=== PATIENT | female | born 1965 | race Caucasian/White ===

== ENCOUNTER 2020-03-17 06:58 | Outpatient (CLI) | payer OTHER, SELFPAY ==
--- NOTE | 2020-03-17 07:03 | NMCV_ITS ---
NM steven perf SPECT r/s* [id number] Mallika Soliz Age: 54 Gender: F : 1965 Exam Date: 03/17/2020 08:06 Ordering Phys: Jovan Colón MD Technologist: VERONICA Crabtree Exam Location: [facility] Indications: CHEST PAIN STRESS TEST Please see separate stress test report in [facility] for full findings IMAGE PROTOCOL Rest/Stress 1 Exercise Day Radiopharmaceutical Dose (mCi) Administration Site Administered by Rest: Tc-99m 10.7 IV VERONICA Crabtree Sestamibi Stress:Tc-99m 32.5 IV VERONICA Shaikh Sestamibi Rest: 17-Mar-2020 60 Discovery 630 Stress: 17-Mar-2020 15 Discovery 630 Radiopharmaceutical was injected at 86 % maximum heart rate. Images obtained in supine and prone position. SPECT RESULTS Technical Quality: Excellent Raw Data Analysis: Normal Image Corrections: No attenuation or motion correction applied Summed Stress Score: 1 Summed Rest Score: 7 Summed Difference Score: 0 PERFUSION FINDINGS Patchy areas of slightly decreased tracer uptake in the anterior wall inferior wall regions, with no significant reversibility. FUNCTIONAL RESULTS (calculated via Gated SPECT) Stress Image LV EF (%): 76 Stress EDV (mL):63 TID: 1.33 Stress ESV (mL):15 FUNCTIONAL FINDINGS: Segmental wall motion analysis revealing no gross wall motion normalities. IMPRESSIONS 1. Myocardial perfusion imaging revealing patchy areas of persistent decreased tracer uptake in the anterior wall and inferior regions, most likely represent attrition artifact. 2. Normal LV ejection fraction of 76%. 3. LV wall motion analysis revealed no gross wall motion normalities 4. Normal LV volume. 5. Elevated transient ischemic dilatation ratio of 1.33 No elevated transient ischemic dilatation ratio may suggest endocardial ischemia. However the positive predictive value this finding is limited. Clinical correlation is recommended. Dr Paul Jacques MD [facility] (Electronically Signed) Final Date: 17 March 2020 14:27 S
--- NOTE | 2020-03-17 07:25 | ECG_ITS ---
NAME OF STUDY: EXERCISE SESTAMIBI STRESS TEST INDICATION: Chest Pain, PROCEDURE: The baseline electrocardiogram showed normal sinus rhythm with a poor R wave progression. Normal ST-T's. At the baseline, the patient's blood pressure was 132/86 mm Hg with a heart rate of 72. The patient exercised for 5 minutes and 21 seconds on a standard Sam protocol. Patient attained a maximum heart rate of 156 beats per minute(94 % of the maximum predicted heart rate) with a blood pressure at the peak exercise of 170/82 mm Hg. The EKG at the peak exercise revealed no significant changes. Patient did not have any chest pain or any significant arrhythmis with the exercise Sestamibi was injected 1 minute prior to the peak exercise During the recovery phase, there were no new changes. Blood pressure at the end of the recovery phase was 159/82 mm Hg with a heart rate of 97 per minute. CONCLUSION: 1. No significant EKG changes with the [treadmill exercise 2. No exercise-induced chest pain or cardiac arrhythmia 3. Slightly impaired exercise tolerance, attained a maximum of 7.0 METs 4. Sestamibi/Sestamibi perfusion results pending; see separate report. Electronically Signed On 03-17-2020 13:29:38 CDT by Paul Jacques M.D. [email or web address]
[2020-03-17 07:27] VITALS: BMI 25.7
[2020-03-17 09:37] VITALS: BP 159/82; PULSE 96
== END 2020-03-17 06:59 | disposition home or self-care (01) ==
LOC: RAD 07:00
PROVIDERS: Family Provider Internal Medicine; PCP Internal Medicine; Visit Provider Family Medicine
DX: R07.9 Chest pain, unspecified (principal)
CPT/HCPCS: 78452; 93017; A9500

== ENCOUNTER 2020-04-18 07:15 | Outpatient (CLI) | payer OTHER, SELFPAY ==
--- NOTE | 2020-04-18 07:20 | USCV_ITS ---
Mallika Soliz Age: 55 Gender: F : 1965 Exam Date: 04/18/2020 07:33 Ordering Phys: Zohaib Mehta DO Technologist: Aaron Mock Exam Location: [facility] [place] Indication: PALPATATION BP: 120 / 70 HR: 79 Rhythm: Sinus Technical Quality: Adequate MEASUREMENTS (Male / Female) Normal Values 2D ECHO LVOT Diameter 2.0 cm LV Ejection Fraction MOD 2C 78.5 % LV Ejection Fraction 2C AL 78.6 % LA Diameter 3.6 cm Aorta at Sinotubular Diameter 2.4 cm M-MODE LV Diastolic Diameter MM 3.8 cm 4.2 - 5.9 / 3.9 - 5.3 cm LV Systolic Diameter MM 1.9 cm LV Ejection Fraction MM Teich 81.2 % IVS Diastolic Thickness MM 0.8 cm 0.6 - 1.0 / 0.6 - 0.9 cm IVS Systolic Thickness MM 1.4 cm LVPW Diastolic Thickness MM 1.1 cm 0.6 - 1.0 / 0.6 - 0.9 cm LVPW Systolic Thickness MM 1.8 cm RV Diastolic Diameter MM 2.3 cm Aortic Annulus Diameter 2.9 cm LA Ao Ratio MM 1.2 MV E Point Septal Separation 1.0 cm DOPPLER AV Peak Velocity 141.0 cm/s LVOT Peak Velocity 122.0 cm/s AV Area Cont Eq vti 2.5 cm squared AV Area Cont Eq pk 2.7 cm squared MV Area PHT 5.0 cm squared Mitral E to A Ratio 0.9 MV E' Velocity 11.0 cm/s Mitral E to MV E' Ratio 9.2 Mitral E to LV E' Lateral Ratio 8.8 Mitral E to LV E' Septal Ratio 9.6 TR Peak Velocity 262.0 cm/s TR Peak Gradient 27.4 mmHg Right Atrial Pressure 3.0 mmHg Pulmonary Artery Systolic Pressu 30.5 mmHg PV Peak Velocity 80.0 cm/s FINDINGS Left Ventricle Normal left ventricular size, systolic function and wall thickness, with no regional wall motion abnormalities. Left ventricular ejection fraction is estimated at 75 %. Normal diastolic function. Right Ventricle Normal right ventricular size and systolic function. Right ventricular systolic pressure 30.5 mmHg. Right Atrium Normal right atrial size. Left Atrium Normal left atrial size. Mitral Valve Structurally normal mitral valve. No mitral valve stenosis. Trace mitral valve regurgitation. Aortic Valve Structurally normal trileaflet aortic valve. No aortic valve stenosis. Trace aortic valve regurgitation. Tricuspid Valve Structurally normal tricuspid valve. Trace tricuspid valve regurgitation. Pulmonic Valve Structurally normal pulmonic valve. No pulmonary valve stenosis. Trace pulmonary valve regurgitation. Pericardium No pericardial effusion. Aorta Normal-sized aortic root. CONCLUSIONS 1. Normal left ventricular size, systolic function and wall thickness, with no regional wall motion abnormalities. Left ventricular ejection fraction is estimated at 75 %. Normal diastolic function. 2. Normal right ventricular size and systolic function. 3. Trace aortic valve regurgitation. 4. No prior similar studies to compare. Gunjan Ferrera MD (Electronically Signed) Final Date: 18 Apr 2020 14:49 S
== END 2020-04-18 07:16 | disposition home or self-care (01) ==
PROVIDERS: Family Provider Internal Medicine; PCP Internal Medicine; Visit Provider Internal Medicine
DX: R00.2 Palpitations (principal)
CPT/HCPCS: 93306

== ENCOUNTER 2021-04-09 10:02 | Emergency (ER) | payer OTHER, SELFPAY ==
[2021-04-09 10:10] VITALS: BP 145/90; PULSE 75; RESP 16; TEMP 36.9; O2SAT 98; BMI 26.7
--- NOTE | 2021-04-09 10:15 | W.ED.ABDPA2 ---
Documented by User: Carla Joseph 04/09/21 13:06 HPI - Abdominal Pain General: Chief Complaint: Abdominal Pain Stated Complaint: AB/BACK PAIN Time Seen by Provider: 04/09/21 10:04 History of Present Illness: HPI narrative: Mallika is a 55-year-old female who states she started having right-sided flank/abdominal pain last night. She states she went to [facility] and they did a urinalysis which did not show an infection so they advised her to come here for further evaluation. Denies any recent falls or abdominal trauma. MD elicited complaint: abdominal pain Onset (ago): hour(s) (12) Severity: moderate Pain scale (0-10): 6 Quality: cramping Migration to: periumbilical, RLQ and R flank Exacerbating factors: nothing Relieving factors: nothing Associated Symptoms: Reports nausea; Denies chills, dysuria, fever(s), hematochezia and hematemesis Review of Systems Const: Denies: fever(s) or chills ENMT: Denies: throat pain Card: Denies: chest pain or palpitations Resp: Denies: dyspnea GI: Reports: abdominal pain and nausea; Denies: hematemesis or hematochezia : Reports: flank pain; Denies: difficulty voiding or dysuria Musc: Denies: neck pain or back pain Skin/Breast: Denies: rash Neuro: Denies: headache(s) Physical Exam Const: COMMON NORMALS: no acute distress GENERAL APPEARANCE: cooperative ORIENTATION/CONSCIOUSNESS: Yes awake, Yes oriented to person, Yes oriented to place and Yes oriented to time HENMT: COMMON NORMALS: normocephalic HEAD & SCALP: normocephalic Eye: COMMON NORMALS: Equal, round and reactive pupils present and EOMs intact bilaterally PUPIL: Yes Equal, round and reactive pupils present Neck/C-Spine: COMMON NORMALS: full ROM GENERAL: Yes normal visual inspection Chest: COMMONS NORMALS: normal inspection of the chest CHEST: Yes Symmetrical chest wall rise Resp: COMMON NORMALS: normal respiratory effort and clear to auscultation bilaterally EFFORT & INSPECTION: Yes able to speak in complete sentences and Yes symmetric chest movement AUSCULTATION: clear to auscultation bilaterally Cardio: COMMON NORMALS: regular rate and regular rhythm RATE: regular rate RHYTHM: regular rhythm GI: COMMON NORMALS: Normal to inspection, nondistended, normoactive bowel sounds present and Soft to palpation INSPECTION: Yes normal to inspection PALPATION: Yes Soft to palpation, Yes Tenderness to palpation present (GI) Details: RLQ, No Guarding due to palpation present (GI) and No Rigid due to palpation Neuro: SENSORIUM/ORIENTATION: Yes oriented to person, Yes oriented to place and Yes oriented to time Course ED course: 1220: Patient reassessed and states that her pain is now 2 out of 10. She is resting comfortably. Advised her her CT scan showed right-sided ovarian cyst and given her amount of pain would like to rule out ovarian torsion. Discussed this will be performed with an ultrasound. Ultrasound ordered. Vital Signs: Vital signs: Vital Signs Temperature 98.5 F 04/09/21 10:10 Pulse Rate 72 04/09/21 13:41 Respiratory Rate 18 04/09/21 13:41 Blood Pressure 129/82 04/09/21 13:41 Pulse Oximetry 98 04/09/21 13:41 MDM - Abdominal Pain Lab Data: Labs: Lab Results 04/09/21 04/09/21 04/09/21 Range/Units 10:27 10:27 11:40 WBC 6.5 (4.0-10.0) 10^3/ uL RBC 5.41 H (4.1-5.3) 10^6/u L Hgb 15.0 (11.5-15.3) g/dL Hct 46.9 (37.0-47.0) % MCV 86.7 (81-99) fL MCH 27.7 L (28.0-34.0) pg MCHC 32.0 (30.0-36.0) g/dL RDW 13.7 (12.1-15.1) % Plt Count 298 (130-400) 10^3/c mm MPV 9.6 (7.4-10.4) fL Neut % (Auto) 79.3 % Lymph % (Auto) 15.3 % [place] % (Auto) 4.0 % Eos % (Auto) 0.8 % Baso % (Auto) 0.3 % Neut # (Auto) 5.13 (1.8-7.7) 10^3/u L Lymph # (Auto) 1.0 (0.8-4.8) 10^3/u L [place] # (Auto) 0.3 (0.2-0.9) 10^3/u L Eos # (Auto) 0.1 (0.0-0.8) 10^3/u L Baso # (Auto) 0.0 (0.0-0.1) 10^3/u L Nucleated RBC % (a uto) 0 % Nucleated RBCs # 0.0 /100WBC Sodium 140 (136-145) mmol/L Potassium 4.2 (3.5-5.1) mmol/L Chloride 105 (98-107) mmol/L Carbon Dioxide 26 (22-29) mmol/L Anion Gap 13.2 (5-19) BUN 15 (6-20) mg/dL Creatinine 0.6 (0.5-0.9) mg/dL GFR Calculation 103.4 (90-130) mL/min Glucose 104 (65-115) mg/dL Calculated Osmolal ity 291 (285-295) mOsm/k g Calcium 9.3 (8.5-10.5) mg/dL Total Bilirubin 0.3 (0.15-1.2) mg/dL AST 20 (0-32) U/L ALT 25 (0-33) U/L Alkaline Phosphata se 107 H (35-105) IU/L Total Protein 7.8 (6.6-8.7) g/dL Albumin 4.5 (3.5-5.2) g/dL Globulin 3.3 (1.3-4.6) g/dL Urine Color Colorless (Yellow) Urine Appearance Clear (CLEAR) Urine pH 6.5 (5-7) Ur Specific Gravit y 1.010 (1.005-1.030) Urine Protein Neg (Negative) Urine Glucose (UA) Norm (Normal) Urine Ketones Negative (Negative) Urine Blood Neg (Negative) Urine Nitrate Negative (Negative) Urine Bilirubin Neg (Negative) Urine Urobilinogen Norm (Negative) mg/dL Ur Leukocyte Briseida ase Negative (Negative) Imaging Data ^: CT Abd/Pel: Radiologist's impression: 1. Normal appendix. 2. RIGHT ovarian cyst measuring 3.6 x 3.0 cm with adjacent edema in the adnexa. No free fluid. If there is possibility of ovarian torsion consider transvaginal pelvic ultrasound follow-up. 3. Retroverted uterus with a fundal fibroid measuring 4.2 x 3.3 cm. 4. Mild increase fluid in the proximal jejunum may be due minimal sentinel ileus or peristalsis. US: Radiologist's impression: Blood flow noted to both ovaries bilaterally. Ovarian cyst on the right ovary. Uterine fibroid. Discharge Plan Discharge Patient Disposition: Home Clinical Impression: Nausea Ovarian cyst Qualifiers: Laterality: right Qualified Code(s): N83.201 - Unspecified ovarian cyst, right side Condition: Stable Prescriptions: New naproxen 500 mg tablet 500 mg PO BID Qty: 15 RF: 0 No Action multivitamin Tablet 1 tab PO DAILY RF: 0 ibuprofen 800 mg Tablet 800 mg PO TID PRN (Reason: Pain) RF: 0 Discharge Orders: Discharge ED (Routine); Ordered 04/09/21 Ordered By: Carla Joseph Referrals: Zohaib Mehta DO [Primary Care Provider] - Discharge Diet: Usual diet Discharge Activity: Resume usual activity Patient Instructions: Opioid Safety Activity Restrictions/Additional Instructions: Drink plenty of fluids. Take naproxen twice daily with food for the next 5 days. Take this instead of ibuprofen for pain. You may take additional [id number] Tylenol as needed as directed by package instructions. Avoid any heavy lifting for the next 3 to 5 days. Follow-up with your family doctor in 3 to 5 days. Return if any problems. Coding Level of Care Code ED Fish Hatchery Manager for Chg Fwd Exam Comprehensive Documented by User: Brown Flores DO 04/10/21 16:37 HPI - Abdominal Pain General: Chief Complaint: Abdominal Pain Stated Complaint: AB/BACK PAIN Time Seen by Provider: 04/09/21 10:04 Course Vital Signs: Vital signs: Vital Signs Temperature 98.5 F 04/09/21 10:10 Pulse Rate 72 04/09/21 13:41 Respiratory Rate 18 04/09/21 13:41 Blood Pressure 129/82 04/09/21 13:41 Pulse Oximetry 98 04/09/21 13:41 MDM - Abdominal Pain MDM Narrative: Medical decision making narrative: Discussed case with midlevel. Agree with assessment and plan Lab Data: Labs: Lab Results 04/09/21 04/09/21 04/09/21 Range/Units 10:27 10:27 11:40 WBC 6.5 (4.0-10.0) 10^3/ uL RBC 5.41 H (4.1-5.3) 10^6/u L Hgb 15.0 (11.5-15.3) g/dL Hct 46.9 (37.0-47.0) % MCV 86.7 (81-99) fL MCH 27.7 L (28.0-34.0) pg MCHC 32.0 (30.0-36.0) g/dL RDW 13.7 (12.1-15.1) % Plt Count 298 (130-400) 10^3/c mm MPV 9.6 (7.4-10.4) fL Neut % (Auto) 79.3 % Lymph % (Auto) 15.3 % [place] % (Auto) 4.0 % Eos % (Auto) 0.8 % Baso % (Auto) 0.3 % Neut # (Auto) 5.13 (1.8-7.7) 10^3/u L Lymph # (Auto) 1.0 (0.8-4.8) 10^3/u L [place] # (Auto) 0.3 (0.2-0.9) 10^3/u L Eos # (Auto) 0.1 (0.0-0.8) 10^3/u L Baso # (Auto) 0.0 (0.0-0.1) 10^3/u L Nucleated RBC % (a uto) 0 % Nucleated RBCs # 0.0 /100WBC Sodium 140 (136-145) mmol/L Potassium 4.2 (3.5-5.1) mmol/L Chloride 105 (98-107) mmol/L Carbon Dioxide 26 (22-29) mmol/L Anion Gap 13.2 (5-19) BUN 15 (6-20) mg/dL Creatinine 0.6 (0.5-0.9) mg/dL GFR Calculation 103.4 (90-130) mL/min Glucose 104 (65-115) mg/dL Calculated Osmolal ity 291 (285-295) mOsm/k g Calcium 9.3 (8.5-10.5) mg/dL Total Bilirubin 0.3 (0.15-1.2) mg/dL AST 20 (0-32) U/L ALT 25 (0-33) U/L Alkaline Phosphata se 107 H (35-105) IU/L Total Protein 7.8 (6.6-8.7) g/dL Albumin 4.5 (3.5-5.2) g/dL Globulin 3.3 (1.3-4.6) g/dL Urine Color Colorless (Yellow) Urine Appearance Clear (CLEAR) Urine pH 6.5 (5-7) Ur Specific Gravit y 1.010 (1.005-1.030) Urine Protein Neg (Negative) Urine Glucose (UA) Norm (Normal) Urine Ketones Negative (Negative) Urine Blood Neg (Negative) Urine Nitrate Negative (Negative) Urine Bilirubin Neg (Negative) Urine Urobilinogen Norm (Negative) mg/dL Ur Leukocyte Briseida ase Negative (Negative) Discharge Plan Discharge Patient Disposition: Home Clinical Impression: Nausea Ovarian cyst Qualifiers: Laterality: right Qualified Code(s): N83.201 - Unspecified ovarian cyst, right side Condition: Stable Prescriptions: New naproxen 500 mg tablet 500 mg PO BID Qty: 15 RF: 0 No Action multivitamin Tablet 1 tab PO DAILY RF: 0 ibuprofen 800 mg Tablet 800 mg PO TID PRN (Reason: Pain) RF: 0 Discharge Orders: Discharge ED (Routine); Ordered 04/09/21 Ordered By: Carla Joseph Referrals: Zohaib Mehta DO [Primary Care Provider] - Discharge Diet: Usual diet Discharge Activity: Resume usual activity Patient Instructions: Opioid Safety Activity Restrictions/Additional Instructions: Drink plenty of fluids. Take naproxen twice daily with food for the next 5 days. Take this instead of ibuprofen for pain. You may take additional [id number] Tylenol as needed as directed by package instructions. Avoid any heavy lifting for the next 3 to 5 days. Follow-up with your family doctor in 3 to 5 days. Return if any problems. Coding Level of Care Code ED Fish Hatchery Manager for Tangelag Fwd Exam Comprehensive
[2021-04-09 10:36] LABS: Basophils % 0.3 %; Eosinophils # 0.1 10^3/uL (0.0-0.8); Eosinophils % 0.8 %; Hematocrit 46.9 % (37.0-47.0); Lymphocytes % 15.3 %; Mean Corpuscular Hemoglobin 27.7 pg (28.0-34.0); Mean Corpuscular Volume 86.7 fL (81-99); Mean Platelet Volume 9.6 fL (7.4-10.4); Monocytes # 0.3 10^3/uL (0.2-0.9); Neutrophils # 5.13 10^3/uL (1.8-7.7); Neutrophils % 79.3 %; Nucleated Red Blood Cells % 0 %; Platelet Count 298 10^3/cmm (130-400); Red Blood Count 5.41 10^6/uL (4.1-5.3); Red Cell Distribution Width 13.7 % (12.1-15.1); White Blood Count 6.5 10^3/uL (4.0-10.0)
[2021-04-09 10:49] LABS: Alanine Aminotransferase 25 U/L (0-33); Albumin Level 4.5 g/dL (3.5-5.2); Alkaline Phosphatase 107 IU/L (35-105); Anion Gap 13.2 (5-19); Aspartate Amino Transferase 20 U/L (0-32); Blood Urea Nitrogen 15 mg/dL (6-20); Calcium 9.3 mg/dL (8.5-10.5); Carbon Dioxide 26 mmol/L (22-29); Chloride 105 mmol/L (98-107); Globulin 3.3 g/dL (1.3-4.6); Glomerular Filtration Rate 103.4 mL/min (90-130); Glucose 104 mg/dL (65-115); Osmolality Calculated 291 mOsm/kg (285-295); Potassium 4.2 mmol/L (3.5-5.1); Sodium 140 mmol/L (136-145); Total Bilirubin 0.3 mg/dL (0.15-1.2); Total Protein 7.8 g/dL (6.6-8.7)
--- NOTE | 2021-04-09 10:49 | CT_ITS ---
WS: [id number] CT ABDOMEN AND PELVIS WITH CONTRAST HISTORY: RLQ pain TECHNIQUE: Imaging performed of the abdomen and pelvis with IV contrast. Single phase imaging of the abdomen. Coronal and sagittal reformats are submitted. All CT scans at [facility] use at least one of these dose optimization techniques: automated exposure control; mA and/or kV adjustment per patient size (includes targeted exams where dose is matched to clinical indication); or iterativ e reconstruction. IV CONTRAST: Omnipaque 300; 95 mL IV. Oral contrast: No DLP: 1236.79 mGy.cm COMPARISON: None available. Lower thorax: Lung bases are clear. Heart is normal size. Large hiatal hernia. Liver/biliary system: Normal size liver. Area of fatty sparing adjacent to the falciform ligament. Gallbladder: Normal. No gallstones or wall thickening. No pericholecystic fluid. Pancreas: Normal size pancreas and pancreatic duct. No adjacent inflammation. Spleen: Normal size spleen. No mass or infarct. Adrenal glands: Normal. Right kidney: Normal. Left kidney: Normal. Aorta: Normal. Lymphadenopathy: None. Free fluid: None. GI tract: Normal appendix. There is mild diffuse constipation. Small amount of increased fluid in the jejunum. May be a sentinel loop. No evidence for an intussusception. Abdominal wall: Unremarkable abdominal wall. No hernia. Pelvis: Cystic mass in the RIGHT adnexa measures 3.6 x 3.0 cm. There is adjacent edema within the sof t tissues of the LEFT adnexa. The uterus is retroverted and there is a fundal fibroid measuring 4.2 x 3.3 cm. Normal size LEFT ovary. No free fluid. Bones: Unremarkable. CT/CT abdomen pelvis w con* [id number] IMPRESSION: 1. Normal appendix. 2. RIGHT ovarian cyst measuring 3.6 x 3.0 cm with adjacent edema in the adnexa . No free fluid. If there is possibility of ovarian torsion consider transvagin al pelvic ultrasound follow-up. 3. Retroverted uterus with a fundal fibroid measuring 4.2 x 3.3 cm. 4. Mild increase fluid in the proximal jejunum may be due minimal sentinel ile us or peristalsis.
[2021-04-09 11:13] VITALS: RESP 16
[2021-04-09] MEDS: morphine 4 mg/mL SDV 1 mL IVP (11:13)
[2021-04-09] MEDS: sodium chloride 0.9% 1,000 ML 999 ML IV (11:14)
[2021-04-09] MEDS: ondansetron 2 mg/ML SDV 2 mL 4 MG IVP (11:14)
[2021-04-09] MEDS: iohexol 300 mg/mL 100 mL Btl IV (11:23)
[2021-04-09 11:47] LABS: Add Urine Microscopic? NO; Charge for UA Resulting for Rev
[2021-04-09 11:53] LABS: Urine Appearance Clear (CLEAR); Urine Color Colorless (Yellow); pH Urine 6.5 (5-7)
[2021-04-09 11:54] LABS: Bilirubin Urine Neg (Negative); Blood Urine Neg (Negative); Glucose Urine UA Norm (Normal); Ketones Urine Negative (Negative); Leukocyte Esterase Urine Negative (Negative); Nitrate Urine Negative (Negative); Protein Urine Neg (Negative); Urobilinogen Urine Norm (Negative)
--- NOTE | 2021-04-09 12:11 | US_ITS ---
WS: [id number] ULTRASOUND PELVIS TECHNIQUE: Transabdominal and transvaginal. ULTRASOUND PELVIS TECHNIQUE: Transabdominal. CLINICAL INFORMATION: Right sided pain, cyst on CT : No. COMPARISON: CT earlier today FINDINGS: Uterus Orientation: Retroverted Size: 6.5 cm x 4.7 cm x 2.6 cm. Masses: Anterior superior fibroid Cervix: 3.1 cm. Incidental nabothian cysts Endometrium: Normal. Endometrium thickness: 0.3 cm. Adnexa: Right ovarian cyst with mural nodule. Cystic ovarian lesion measures 2.7 x 4.2 CM. Mural nodu le measures 10 mm. No associated vascularity. Right ovary size: 4.4 cm x 3.3 cm x 3.9 cm. Right ovary volume: 29.3 ccm3. Left ovary size: 4.3 cm x 4.2 cm x 2.7 cm. Left ovary volume: 25.5 ccm3 Free fluid: None. Other findings: None. US/US pelvic with transvaginal IMPRESSION: 1. Right ovarian cystic lesion measuring 2.7 x 4.2 cm with 10 mm mural nodule. No associated vascularity. This may represent retracted clot in a hemorrhagic cyst however Cystic ovarian neoplasm not excluded in a postmenopausal patient. Recommend 3 month follow-up ultrasound and ELIGIBILITY COUNSELOR consultation. 2. Retroverted uterus with fundal fibroid. 3. Normal vascularity to both ovaries.
[2021-04-09 13:09] VITALS: BP 135/79; PULSE 55; RESP 18; O2SAT 100
[2021-04-09 13:41] VITALS: BP 129/82; PULSE 72; RESP 18; O2SAT 98
== END 2021-04-09 13:45 | disposition home or self-care (01) ==
PROVIDERS: Emergency Provider Physician Assistant; PCP Internal Medicine
DX: N83.201 Unspecified ovarian cyst, right side (principal); R11.0 Nausea
CPT/HCPCS: 74177; 76830; 76856; 80053; 81003; 85025; 96361; 96374; 96375; 99284; J2270; J2405; J7030; Q9967

== ENCOUNTER 2021-06-04 10:43 | Outpatient (CLI) | payer OTHER, SELFPAY ==
--- NOTE | 2021-06-04 10:48 | MM_ITS ---
WS: [id number] BILATERAL DIGITAL SCREENING MAMMOGRAPHY WITH CAD CLINICAL INFORMATION: SCREENING HISTORY: Screening mammogram. No current complaints. COMPARISON: TECHNIQUE: Bilateral CC and MLO views. FINDINGS: Scattered fibroglandular densities bilaterally. No suspicious focal mass, asymmetry, calcifications, or architectural distortion. No evidence of malignancy. MM/[place] [id number] IMPRESSION: BI-RADS: 1-Negative FOLLOW UP: 1 Year Follow-up Recommend return to annual screening mammography.
== END 2021-06-04 10:44 | disposition home or self-care (01) ==
LOC: RADSHAW 10:47
PROVIDERS: PCP Internal Medicine; Visit Provider Family Medicine
DX: Z12.31 Encounter for screening mammogram for malignant neoplasm of breast (principal)
CPT/HCPCS: 77067

== ENCOUNTER → 2023-06-02 09:37 | Outpatient (BNVA) | payer OTHER, SELFPAY | PROVIDERS: PCP Family Medicine; Visit Provider Family Medicine | DX: Z76.89 Persons encountering health services in other specified circumstances (principal); Z13.220 Encounter for screening for lipoid disorders; Z13.6 Encounter for screening for cardiovascular disorders; Z13.1 Encounter for screening for diabetes mellitus; Z11.4 Encounter for screening for human immunodeficiency virus [HIV]; Z11.59 Encounter for screening for other viral diseases; E83.52 Hypercalcemia | CPT/HCPCS: 80053; 80061; 82306; 83036; 84443; 85025; 86803; 87806 ==

== ENCOUNTER → 2023-08-11 15:49 | Outpatient (BNVA) | payer OTHER, SELFPAY | PROVIDERS: PCP Family Medicine; Visit Provider Family Medicine | DX: L81.9 Disorder of pigmentation, unspecified (principal) | CPT/HCPCS: 88304 ==

== ENCOUNTER 2025-04-05 20:00 | Outpatient (CLI) | payer OTHER, SELFPAY | END 2025-04-05 20:01 | disposition home or self-care (01) | LOC: SLEEP 04-06 04:22 | PROVIDERS: PCP Family Medicine; Visit Provider Family Medicine | DX: G47.33 Obstructive sleep apnea (adult) (pediatric) (principal); G47.36 Sleep related hypoventilation in conditions classified elsewhere | CPT/HCPCS: 95810 ==

== ENCOUNTER 2025-04-11 10:31 | Outpatient (CLI) | payer OTHER, SELFPAY ==
--- NOTE | 2025-04-11 10:36 | MM_ITS ---
WS: [id number] BILATERAL SCREENING DIGITAL TOMOSYNTHESIS MAMMOGRAM WITH CAD HISTORY: SCREENING COMPARISON: 06/04/2021, 09/20/2019 Bilateral CC and MLO views with tomosynthesis and synthetic mammography submitted. Computer aided detection analyzed. Breast composition: There are scattered areas of fibroglandular density. No suspicious masses, microcalcifications or architectural distortion. Long-term stability of the focal asymmetry in the upper outer quadrant RIGHT breast at middle depth. There are few benign calcifications. MM/MM scr tomosynthesis [id number] IMPRESSION: BI-RADS: 2 - Benign. FOLLOW UP: 1 Year Follow-up
== END 2025-04-11 10:32 | disposition home or self-care (01) ==
PROVIDERS: PCP Family Medicine; Visit Provider Family Medicine
DX: Z12.31 Encounter for screening mammogram for malignant neoplasm of breast (principal); R92.323 Mammographic fibroglandular density, bilateral breasts; N64.89 Other specified disorders of breast; R92.1 Mammographic calcification found on diagnostic imaging of breast
CPT/HCPCS: 77063; 77067